=== PATIENT | female | born 1985 | race African-American/Black ===

== ENCOUNTER 2019-10-28 21:33 | Emergency (ER) | payer SELFPAY ==
[2019-10-28] MEDS ORDERED: Ondansetron ODT 4 MG TAB ONE (22:52)
[2019-10-28 23:13] LABS: Bilirubin Negative (Negative); Blood, Urine Negative (Negative); Clarity Clear (Clear); Glucose, Urine (Dipstick) Normal (Negative); Leukocyte Negative Leu/uL (Negative); Nitrite Negative (Negative); Protein, Urine (Dipstick) 10 mg/dL (Neg-Trace)
[2019-10-28 23:14] LABS: Pregnancy Test - Urine (BHCG) Negative (Negative); Pregu Control Background? CLEAR/WHITE (CLR/WHITE); Pregu Control Bar Appear? YES (CONTROL BAR); Specific Gravity 1.026 (1.002-1.036)
[2019-10-28 23:25] LABS: #Eosinphils 0.1 thou/uL (0.0-0.7); #Lymphocytes 1.5 thou/uL (1.20-3.40); #Monocytes 0.3 thou/uL (0.11-0.59); #Neutrophils 4.7 thou/uL (1.40-6.50); %Basophils 0.3 % (0.0-1.0); %Eosinophils 1.6 % (0.0-10.0); %Lymphocytes 22.9 % (21.0-51.0); %Monocytes 4.3 % (0.0-10.0); %Neutrophils 70.8 % (42.0-75.0); Anisocytosis SLIGHT = 6-15 cells (100X) (0-5/hpf); Hemoglobin 10.1 g/dL (12.0-16.0); MDiff Complete? YES; Mean Corpuscular HGB CONC 31.2 g/dL (32.0-36.0); Mean Corpuscular Hemoglobin 22.7 pg (27.0-31.0); Mean Corpuscular Volume 72.8 fL (78.0-98.0); Mean Platelet Volume 7.1 fL (7.4-10.4); Platelet Count 382 thou/uL (130-400); RBC Distribution Width 16.5 % (11.5-14.5); Red Blood Cell (RBC) Count 4.45 mill/uL (4.20-5.40); White Blood Cell (WBC) Count 6.7 thou/uL (4.8-10.8)
[2019-10-28 23:29] LABS: ALT (SGPT) 21 U/L (8-55); AST (SGOT) 25 U/L (5-34); Albumin 4.1 g/dL (3.5-5.0); Alkaline Phosphatase 82 U/L (40-110); Anion Gap 11 mmol/L (10-20); BUN (Urea Nitrogen) 7 mg/dL (7.0-18.7); Bilirubin, Total 0.5 mg/dL (0.2-1.2); Calc. Creatinine Clearance 0 mL/min (70-130); Calcium 8.7 mg/dL (7.8-10.44); Carbon Dioxide 25 mmol/L (22-29); Chloride 103 mmol/L (98-107); Estimated GFR-MDRD Greater than 90; Globulin 3.5 g/dL (2.4-3.5); Glucose 91 mg/dL (70-105); Lipase 17 U/L (8-78); Potassium 3.5 mmol/L (3.5-5.1); Protein, Total 7.6 g/dL (6.0-8.3); Sodium 135 mmol/L (136-145)
== END 2019-10-28 23:47 | disposition home or self-care (01) ==
LOC: ERS 21:33
DX: R10.9 Unspecified abdominal pain (principal); R11.2 Nausea with vomiting, unspecified; K64.4 Residual hemorrhoidal skin tags; J45.909 Unspecified asthma, uncomplicated; Z87.891 Personal history of nicotine dependence
CPT/HCPCS: 36415; 80053; 81003; 81025; 83690; 85025; 99284; Q0162

== ENCOUNTER 2020-11-25 21:48 | Emergency (ER) | payer BC, MEDICAID ==
[2020-11-25] MEDS ORDERED: Ketorolac Tromethamine 30 MG/ML VIAL ONE (22:49)
== END 2020-11-25 23:53 | disposition home or self-care (01) ==
LOC: ERS 21:48
DX: K03.81 Cracked tooth (principal); J45.909 Unspecified asthma, uncomplicated; Z87.891 Personal history of nicotine dependence
CPT/HCPCS: 96372; 99282; J1885

== ENCOUNTER 2022-09-18 02:38 | Emergency (ER) | payer SELFPAY ==
[2022-09-18] MEDS ORDERED: Ketorolac Tromethamine 30 MG/ML VIAL ONE (03:22)
== END 2022-09-18 03:26 | disposition home or self-care (01) ==
LOC: ERS 02:38
DX: K02.9 Dental caries, unspecified (principal); Z87.891 Personal history of nicotine dependence
CPT/HCPCS: 96372; 99282; J1885